=== PATIENT | female | born 1990 | race Caucasian/White ===

== ENCOUNTER 2017-03-19 15:33 | Outpatient (CLI) | payer OTHER ==
[~2017-03-19 15:33] MED LIST: ACETAMINOPHEN325 MG PO; PERCOCET1 TA1 PO; PRENATAL1 TAB PO
--- NOTE | 2017-03-19 17:57 | DIAGNOSTIC IMAGING REPORT ---
PROCEDURE: US OB DETAILED ANATOMIC INDICATION: ANATOMY TECHNIQUE: Avila scale, color, and spectral Doppler images of the second trimester gravid uterus were obtained. COMPARISON: None. FINDINGS: A single living intrauterine is in variable presentation. There is regular cardiac activity at a rate of 133 beats per minute. The placenta is posterior and away from the internal cervical os. The cervix is closed measuring approximately 3.5 cm in length. The amniotic fluid volume is subjectively normal. Biparietal diameter 4.2 cm, 18 weeks 4 days Head circumference 15.3 cm, 18 weeks 2 days Abdominal circumference 13.2 cm, 18 weeks 5 days Femur length 2.7 cm, 18 weeks 1 day Head to abdominal circumference ratio and femur length to abdominal circumference ratios are normal. Estimated weight 240 g plus/minus 36 g Composite gestational age 18 weeks 3 days Axial renal pelvis measurements are at the upper limits of normal, measuring 3.2 mm on the left and 3.8 mm on the right. An echogenic intracardiac focus is present in the left ventricle. Given the position, cranial measurements, facial features and posterior fossa structures are suboptimally seen. There was visualization of a number of normal structures including the spine, the cardiac outflow tracts to the extent that could be visualized, diaphragm, decompressed stomach, abdomen, urinary bladder, upper and lower extremities, and genitals. A three-vessel umbilical cord, normal and placental cord insertion sites were seen. IMPRESSION: 1. Single living intrauterine with a composite gestational age of 18 weeks 3 days and estimated due date 08/17/2017. 2. Symmetric growth. 3. Given variable position, some of the anatomy was suboptimally seen including the facial features, profile, posterior intracranial fossa, and feet, was not well assessed. 4. Left ventricular echogenic intracardiac focus, nonspecific. 5. Renal pelves measurements at the upper limits of normal. 6. Reassessment in 2-3 weeks is recommended to complete anatomic survey and reassess renal pelvic measurements. Additionally, correlation with maternal serum quad screen is recommended.
== END 2017-03-19 23:00 ==
LOC: US SRH 15:33
DX: Z34.82 Encounter for supervision of other normal pregnancy, second trimester (principal); Z3A.18 18 weeks gestation of pregnancy
CPT/HCPCS: 90004; 90074; 90078; 90261; 90364; 90495; 90496; 90498; 90599; 90600; 90605; 90606; 90710; 90851; 91493; 92863; 93140; 98480; 99777